=== PATIENT | male | born 1955 | race Caucasian/White ===

== ENCOUNTER 2024-04-15 12:02 | Emergency (ER) | payer MEDICARE, SELFPAY ==
[2024-04-15 12:13] VITALS: BP 142/89; PULSE 73; RESP 16; TEMP 36.8; O2SAT 100
--- NOTE | 2024-04-15 12:34 | ED_ITS ---
HPI - Ear Problem General Chief complaint: Ear Stated complaint: EARACHE Time Seen by Provider: 04/15/24 12:34 Source: patient Mode of arrival: ambulatory Limitations: no limitations History of Present Illness HPI Narrative: 68-year-old male presents with complaint of pain and decreased hearing, clogged ear sensation, to right ear. Pain for 2-3 days. Patient reports history of chronic sinusitis. Supposed to take Amarilis daily. The last 2 days has taking Amarilis D. patient states ?always congested ?. Has had issues with vertigo the past few months, has appointment with ENT specialist next week. No vertigo at this time. All systems reviewed and negative except as noted above. Related Data Home Medications ?Medication ?Instructions ?Recorded ?Confirmed ?Last Taken ?Type aspirin 81 mg tablet,delayed 81 mg PO DAILY 01/16/21 01/16/21 Unknown History release ezetimibe 10 mg tablet (Zetia) 10 mg PO DAILY 01/16/21 01/16/21 Unknown History pravastatin 10 mg tablet 10 mg PO .bid a week 01/16/21 01/16/21 Unknown History coenzyme Q10 10 mg capsule (Co 10 mg PO ONCE 04/15/24 Unknown History Q-10) Allergies Allergy/AdvReac Type Severity Reaction Status Date / Time NSAIDS (Non-Steroidal Allergy Severe Rash Verified 04/15/24 12:17 Anti-Inflamma Ngybopm-BDA-NeB Reductase Allergy Severe Difficulty Verified 04/15/24 12:17 Inhibitor (Nebagsn-Ufy-Gvj Breathing Reductase Inhibitor) diazepam Allergy Mild Abdominal Verified 04/15/24 12:17 Pain fenofibrate Allergy Mild Hives Verified 04/15/24 12:17 Review of Systems Review of Systems: CONSTITUTIONAL: Denies fever, chills, or sweats. EYES: Denies visual changes, redness, or discharge. ENT: Reports rhinorrhea, congestion. Denies sore throat. Right ear pain. CARDIOVASCULAR: Denies chest pain, palpitations, or edema. RESPIRATORY: Denies cough or dyspnea. GASTROINTESTINAL: Denies abdominal pain, nausea, vomiting, or diarrhea. GENITOURINARY: Denies dysuria or hematuria. SKIN: Denies rash or itching. MUSCULOSKELETAL: Denies back pain, joint pain, or myalgia. NEUROLOGIC: Denies headache, numbness, or weakness. PSYCHIATRIC: Denies anxiety or depression. All other systems reviewed are negative, except as documented in HPI. [facility] Past Medical History Medical History (Updated 04/15/24 @ 12:42 by Chely Ashby NP) Overweight (BMI 25.0-29.9) CAD (coronary artery disease) Family History Family History Sibling Hypertension Mother Family history of heart disease in male family member before age 55, Onset Age: 81 Social History Social History Smoking status: Former smoker Second hand tobacco smoke exposure: No Smoking end date: 02/26/76 Alcohol intake: current Comments At time of signature, agree with nursing past medical, surgical, social and family history. There is no relevant family history pertinent to the presenting complaint. Exam Narrative: GENERAL: This is a well-nourished, well-developed patient, in no apparent distress. HEAD: normocephalic, atraumatic. EYES: PERRL. Sclera clear/white. Vision is grossly intact. EARS: External ears normal, auditory canals clear and without drainage, fluid bilateral TMs. Left TM is opaque, dull light reflex. Right TM is erythematous and retracted. No perforation bilaterally. NOSE: External nose normal with no obvious nasal discharge, nares without redness, no rhinorrhea. THROAT: Mucous membranes moist, posterior pharynx clear. NECK: Neck supple, non-tender without lymphadenopathy, masses or thyromegaly. CARDIOVASCULAR: Regular rate and rhythm without murmurs, gallops, or rubs. RESPIRATORY: Clear to auscultation. Breath sounds equal bilaterally. No wheezes, rales, or rhonchi. SKIN: warm, Dry, intact with no suspicious lesions or rash, good texture and turgor. NEURO: awake, alert, and oriented to person, place and time. There were no obvious focal neurologic abnormalities. EXTREMITIES: No joint tenderness, effusion, or edema noted. Course Course Level of Care: Express Care Visit Vital Signs Vital signs: Vital Signs Temperature 36.8 C 04/15/24 12:13 Pulse Rate 73 04/15/24 12:13 Respiratory Rate 16 04/15/24 12:13 Blood Pressure 142/89 H 04/15/24 12:13 Pulse Oximetry 100 04/15/24 12:13 Temperature 36.8 C 04/15/24 12:13 Pulse Rate 73 04/15/24 12:13 Respiratory Rate 16 04/15/24 12:13 Blood Pressure 142/89 H 04/15/24 12:13 Pulse Oximetry 100 04/15/24 12:13 Reviewed Medical Decision Making MDM Narrative Medical decision making narrative: Will treat patient with amoxicillin for right otitis media. Recommend he continue Amarilis daily, start a nasal spray such as Flonase or Nasacort. Has appointment with ENT next week. Please be advised this is a medical document. It is intended for [id number] communication. It is written in medical language and may contain unfamiliar abbreviations or verbiage. Medical documents are intended to carry relevant information, facts as evident, and the clinical opinion of the practitioner at the time of the encounter. This report may have been done utilizing a voice recognition system. Attempts have been made to correct errors. However, there may be uncorrected grammatical, spelling, and recognition errors present. The file time of this note does not necessarily represent the time of service. Vital Signs Vital Signs: Vital Signs Temperature 36.8 C 04/15/24 12:13 Pulse Rate 73 04/15/24 12:13 Respiratory Rate 16 04/15/24 12:13 Blood Pressure 142/89 H 04/15/24 12:13 Pulse Oximetry 100 04/15/24 12:13 Temperature 36.8 C 04/15/24 12:13 Pulse Rate 73 04/15/24 12:13 Respiratory Rate 16 04/15/24 12:13 Blood Pressure 142/89 H 04/15/24 12:13 Pulse Oximetry 100 04/15/24 12:13 Discharge Plan Discharge Clinical Impression: Acute serous otitis media of both ears, Acute right otitis media Patient Disposition: Home, Self-Care Condition: Stable Instructions: Antibiotic Form, Ear Infection (ED) Additional Instructions: Take antibiotic as prescribed until gone. Take Amarilis daily. Purchase an yuhh-dzy-sudcipm nasal spray such as Flonase or Nasacort and take as directed on packaging. Follow-up with ENT specialist at scheduled appointment. Patient Language: Dutch Prescriptions: New amoxicillin 875 mg tablet 875 mg PO Q12H 10 Days Qty: 20 0RF No Action coenzyme Q10 [Co Q-10] 10 mg capsule 10 mg PO ONCE aspirin 81 mg tablet,delayed release (DR/EC) 81 mg PO DAILY ezetimibe [Zetia] 10 mg tablet 10 mg PO DAILY pravastatin 10 mg tablet 10 mg PO .bid a week carvedilol 3.125 mg tablet 3.125 mg PO Q12H Qty: 60 2RF Rx Instructions: must administer with a meal/food Follow-up/Referrals: Rita Irby MD [Primary Care Provider] - Time of Disposition: 12:43
== END 2024-04-15 12:46 | disposition home or self-care (01) ==
PROVIDERS: Emergency Provider Nurse Practitioner Family; PCP Urology
DX: H65.03 Acute serous otitis media, bilateral (principal); H66.91 Otitis media, unspecified, right ear; I25.10 Atherosclerotic heart disease of native coronary artery without angina pectoris
CPT/HCPCS: 99213; G0463